=== PATIENT | female | born 1930 | race Two or more races ===

== ENCOUNTER 2018-08-12 08:20 | Emergency (ER) | payer OTHER ==
[~2018-08-12] VITALS: Ht 167.6 cm; Wt 70.8 kg
[2018-08-12] MEDS ORDERED: VASOTEC20 M1 PO (08:33)
[2018-08-12] MEDS ORDERED: CLONAZEPAM1 M1 PO (08:33)
[2018-08-12] MEDS ORDERED: TOVIAZ8 MG PO (08:33)
== END 2018-08-12 13:57 | disposition home or self-care (01) ==
LOC: ER 08:20
DX: K29.60 Other gastritis without bleeding (principal); R10.11 Right upper quadrant pain; R10.12 Left upper quadrant pain

== ENCOUNTER 2018-08-22 10:10 | Emergency (ER) | payer OTHER ==
[~2018-08-22] VITALS: Ht 165.1 cm; Wt 71.7 kg
[~2018-08-22 10:10] MED LIST: CLONAZEPAM1 M1 PO; TOVIAZ8 MG PO; VASOTEC20 M1 PO
== END 2018-08-22 12:43 | disposition home or self-care (01) ==
LOC: ER 10:10
DX: K80.20 Calculus of gallbladder without cholecystitis without obstruction (principal)